=== PATIENT | male | born 1975 | race African-American/Black ===

== ENCOUNTER 2017-03-30 12:47 | Emergency (ER) | payer OTHER | END 2017-03-30 12:58 | disposition home or self-care (01) | LOC: CED 12:47 | DX: Z76.0 Encounter for issue of repeat prescription (principal); I10 Essential (primary) hypertension; F17.200 Nicotine dependence, unspecified, uncomplicated; Z88.5 Allergy status to narcotic agent | CPT/HCPCS: 99282 ==

== ENCOUNTER 2017-04-13 15:30 | Emergency (ER) | payer OTHER | END 2017-04-13 16:15 | disposition home or self-care (01) | LOC: CED 15:30 → CFTX 15:30 | DX: S46.011A Strain of muscle(s) and tendon(s) of the rotator cuff of right shoulder, initial encounter (principal); I10 Essential (primary) hypertension; F17.210 Nicotine dependence, cigarettes, uncomplicated; X50.3XXA Overexertion from repetitive movements, initial encounter | CPT/HCPCS: 96372; 99283; J1885 ==